=== PATIENT | female | born 1985 | race Native Hawaiian/Other Pacific Islander ===

== ENCOUNTER 2018-01-12 08:17 | Inpatient (IN) | payer OTHER ==
[2018-01-12] MEDS ORDERED: POLYCILLIN/NS 2 GM/100 ML 2 GM/100 ML BAG IV NR (11:00)
[2018-01-12] MEDS ORDERED: BRETHINE IVP PRN (11:00)
[2018-01-12] MEDS ORDERED: ePHEDrine SULFATE IV PRN (11:00)
[2018-01-12] MEDS ORDERED: LACTATED RINGERS 1,000 ML IV SCH (11:00)
[2018-01-12] MEDS ORDERED: XYLOCAINE 2% INFILTRATI NR (11:00)
[2018-01-12] MEDS ORDERED: PITOCin/NS 20 UNIT/1000ML DRIP 20 UNITS/1,000 ML BAG IV SCH (11:00)
[2018-01-12] MEDS ORDERED: PITOCin/NS 30 UNIT/500ML 30 UNITS/500 ML BAG IV SCH (11:00)
[2018-01-12] MEDS ORDERED: MINERAL OIL PO PRN (11:00)
[2018-01-12] MEDS ORDERED: BRETHINE SUB-Q PRN (11:00)
[2018-01-12 11:12] LABS: Hematocrit 36.2 % (30.3-42.9); Hemoglobin 11.6 gm/dl (10.1-14.3); Mean Corpuscular HGB Conc 32 % (30-34); Mean Corpuscular Hemoglobin 28 pg (28-32); Mean Corpuscular Volume 86 fl (79-97); Platelet Count 324 K/mm3 (140-440); Red Cell Distribution Width 15.7 % (13.2-15.2)
[2018-01-12] MEDS ORDERED: STADOL IV PRN (11:53)
--- NOTE | 2018-01-12 14:19 | History and Physical Report ---
History of Present Illness Date of examination: 01/12/18 Date of admission: 01/12/18 08:18 Chief complaint: Contractions History of present illness: 32 yo Fe ROSA 01/15/2018 (Ultrasound) presents with contractions. Pt initiated early care with [facility]. Positive Chlamydia and Trichomoniasis 09/30/2017 with Negative CASA 11/22/17. Taking FeS04 for anemia. O positive, Rubella Immune, GBS positive. 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 denies: abnormal PAP smear, gonorrhea, hepatitis B, hepatitis C, herpes, HIV, syphilis Family/Genetic History: none Social history: single, lives with family, full code. denies: smoking, alcohol abuse, prescription drug abuse, IV drug use - Obstetrical History Expected Date of Delivery: 01/15/18 Actual Gestation: 39 Week(s) 4 Day(s) : 3 Para: 2 Hx # Term Pregnancies: 2 Number of Pregnancies: 0 Spontaneous Abortions: 0 Induced : 0 Number of Living Children: 2 #1 Gender: Female year: 2[birth year] Birthweight: 3.629 kg Method of Delivery: Vaginal Gestational age at delivery: 40 Complications: none #2 Gender: Female year: 2[birth year] Birthweight: 3.005 kg Method of Delivery: Vaginal Gestational age at delivery: 39 Complications: none Medications and Allergies Allergies Allergy/AdvReac Type Severity Reaction Status Date / Time No Known Allergies Allergy Verified 01/12/18 11:01 Active Meds: Active Medications Butorphanol Tartrate (Stadol) 2 mg IV Q2H PRN PRN Reason: Labor Pain Last Admin: 01/12/18 12:14 Dose: 2 mg Ephedrine Sulfate (Ephedrine Sulfate) 10 mg IV Q2M PRN PRN Reason: Hypotension Lactated Ringer's (Lactated Ringers) 1,000 mls @ 125 mls/hr IV DIRECT RAMBO Last Admin: 01/12/18 12:39 Dose: 125 mls/hr Oxytocin/Sodium Chloride (Pitocin/Ns 20 Unit/1000ml Drip) 20 units in 1,000 mls @ 125 mls/hr IV DIRECT RAMBO Oxytocin/Sodium Chloride (Pitocin/Ns 30 Unit/500ml) 30 units in 500 mls @ 1 mls /hr IV TITR RAMBO; Protocol Lidocaine (Xylocaine 2%) 20 ml INFILTRATI ONCE NR Stop: 01/13/18 10:59 Mineral Oil (Mineral Oil) 30 ml PO QHS PRN PRN Reason: Constipation Terbutaline Sulfate (Brethine) 0.25 mg SUB-Q ONCE PRN PRN Reason: Hyperstimulation/Hypertonicity Terbutaline Sulfate (Brethine) 0.25 mg IVP ONCE PRN PRN Reason: Hyperstimulation/Hypertonicity Review of Systems All systems: negative Cardiovascular: no chest pain, no shortness of breath Respiratory: no shortness of breath Breasts: normal Gastrointestinal: no nausea, no vomiting, no diarrhea, no constipation Genitourinary: normal appearance, contractions, no vaginal bleeding, no vaginal discharge, no leakage of fluid, no genital sores Integumentary: no rash, no sores, no lesions - Vital Signs Vital signs: Vital Signs Pulse BP 69 113/63 01/12/18 08:42 01/12/18 08:42 Temp Pulse Resp BP Pulse Ox 98.2 F 83 18 123/74 78 L 01/12/18 11:31 01/12/18 13:46 01/12/18 12:44 01/12/18 11:34 01/12/18 13:46 - Physical Exam Breasts: Positive: normal Cardiovascular: Regular rate, Normal S1, Normal S2 Lungs: Positive: Clear to auscultation, Normal air movement Abdomen: Positive: normal appearance, normal bowel sounds, other (Gravid; S=D) Genitourinary (Female): Positive: normal external genitalia, normal perenium Vulva: both: normal Vagina: Positive: normal moisture Uterus: Positive: enlarged Anus/Rectum: Positive: normal perianal skin Extremities: Positive: normal Deep Tendon Reflex Grade: Normal +2 - Obstetrical FHR: auscultation normal, category 1 Uterine Contraction Monitor Mode: External Cervical Dilatation: 4 (per admitting RN) Cervical Effacement Percentage: 80 station: -2 Uterine Contraction Pattern: Regular Uterine Tone Measurement Phase: Resting Uterine Contraction Intensity: Moderate Results Result Diagrams: 01/12/18 10:30 Abnormal lab results 04/12/18 Range/Units 10:30 RDW 15.7 H (13.2-15.2) % All other labs normal. Assessment and Plan A: , TIUP at 39w4d Active labor GBS positive P: Routine labor admit May have IV pain med/epidural PRN Anticipate
[2018-01-12] MEDS ORDERED: BENADRYL PO PRN (14:29)
[2018-01-12] MEDS ORDERED: DULCOLAX PR PRN (14:29)
[2018-01-12] MEDS ORDERED: TUCKS PAD TP PRN (14:29)
[2018-01-12] MEDS ORDERED: PHENERGAN PO PRN (14:29)
[2018-01-12] MEDS ORDERED: ZOFRAN IV PRN (14:29)
[2018-01-12] MEDS ORDERED: MILK OF MAGNESIA PO PRN (14:29)
[2018-01-12] MEDS ORDERED: NORCO 5/325 PO PRN (14:29)
[2018-01-12] MEDS ORDERED: LANSINOH TP PRN (14:29)
[2018-01-12] MEDS ORDERED: TYLENOL PO PRN (14:29)
--- NOTE | 2018-01-12 14:43 | Procedure Note ---
OB Delivery Note - Delivery Date of Delivery: 01/12/18 (13:58) Surgeon: PATRICE RUCKER (OMAYRA) Estimated blood loss: 100cc - Vaginal Delivery presentation: vertex Delivery position: OA Intrapartum events: extend. bradycardia, mult.variable deceleratio Delivery induction: none Delivery augmentation: rupture of membranes Delivery monitor: external FHT, external uterine Route of delivery: Delivery placenta: spontaneous (14:00) Delivery cord: nuchal cord (x1, Loose) Episiotomy: none Delivery laceration: none Anesthesia: intravenous Delivery comments: AROM 13:34 with onset of pushing efforts. viable female over intact perineum, COLIN position, Loose nuchal x1, delivered intact via somersault maneuver at 13:58 with NICU/RT present d/t repeatative variable decels and bradycardia. to mothers abdomen, skin to skin, delayed cord clamping, cut by FOB. Cord blood obtained per hospital protocol. Spontaneous harris delivery of intact placenta at 14:00. 3 VC. FF@U-2. No tears or lacerations. No repairs. EBL 100ML. GBS positive, treated x1. Infant and mother left in stable condition in L&D. - Infant A at 1 minute: 8 at 5 minutes: 9 Infant Gender: Female (3156 grams, 6lbs 15oz, 19")
[2018-01-12] MEDS ORDERED: SODIUM CHLORIDE FLUSH SYRINGE 10 ML IV NR (15:00)
[2018-01-12] MEDS ORDERED: MOTRIN PO SCH (18:00)
[2018-01-13] MEDS: MOTRIN PO SCH ×4 (00:12→18:36)
[2018-01-13 05:49] LABS: Hematocrit 30.2 % (30.3-42.9); Hemoglobin 10.1 gm/dl (10.1-14.3)
--- NOTE | 2018-01-13 10:11 | Progress Note ---
Assessment and Plan A: PPD#1 s/p Stable P: Routine PP care Discharge home in am Subjective - Subjective Date of service: 01/13/18 Interval history: 32 yo Fe ROSA 01/15/2018 (Ultrasound) presents with contractions with 01/12/18. GBS positive, tx'd x1 Patient reports: appetite normal, voiding normally, pain well controlled, flatus , ambulating normally : doing well Objective - Vital Signs Latest vital signs: Vital Signs Temp Pulse Resp BP BP Pulse Ox 01/13/18 09:11 97.7 F 80 20 87/46 01/13/18 06:22 18 01/13/18 00:12 18 01/13/18 00:00 98.4 F 54 L 18 116/56 01/12/18 20:25 98.2 F 61 18 106/63 01/12/18 16:15 98.2 F 54 L 12 109/54 98 01/12/18 15:37 59 L 108/58 01/12/18 15:29 63 96 01/12/18 15:24 66 96 01/12/18 15:22 75 106/55 01/12/18 15:19 60 96 01/12/18 15:14 64 97 01/12/18 15:09 60 97 01/12/18 15:07 80 106/64 01/12/18 15:04 68 96 01/12/18 14:59 63 96 01/12/18 14:54 62 97 01/12/18 14:52 58 L 101/54 01/12/18 14:49 58 L 97 01/12/18 14:44 67 96 01/12/18 14:39 69 97 01/12/18 14:37 64 109/53 01/12/18 14:34 65 97 01/12/18 14:29 64 97 01/12/18 14:24 65 99 01/12/18 14:22 71 108/55 01/12/18 14:19 66 97 01/12/18 13:46 83 78 L 01/12/18 13:45 82 92 01/12/18 13:41 74 97 01/12/18 13:37 76 94 01/12/18 13:36 86 99 01/12/18 13:31 73 98 01/12/18 13:26 76 98 01/12/18 13:21 68 98 04/12/18 13:16 69 98 01/12/18 13:11 86 98 01/12/18 13:06 84 98 01/12/18 13:01 89 98 01/12/18 12:56 82 98 01/12/18 12:51 92 H 97 01/12/18 12:47 72 94 01/12/18 12:46 75 98 01/12/18 12:44 18 01/12/18 12:41 82 98 01/12/18 12:36 72 96 01/12/18 12:31 67 98 01/12/18 12:26 59 L 91 01/12/18 12:21 64 98 01/12/18 12:19 65 94 01/12/18 12:16 66 96 01/12/18 12:14 65 16 91 01/12/18 12:11 66 99 01/12/18 12:06 94 H 99 01/12/18 12:01 70 99 01/12/18 11:56 57 L 98 01/12/18 11:51 58 L 97 01/12/18 11:43 71 99 01/12/18 11:38 57 L 98 01/12/18 11:37 38 L 88 01/12/18 11:34 66 123/74 01/12/18 11:31 98.2 F 66 18 123/74 97 Intake and Output 01/12/18 01/13/18 01/13/18 23:59 07:59 15:59 Intake Total 240 120 120 Output Total 300 400 Balance -60 -280 120 Intake: Oral 240 120 120 Output: Urine 300 400 Void 300 400 Other: Total, Intake Amount 240 120 120 Total, Output Amount 300 400 # Voids Void 1 1 - Exam Breasts: Present: normal Cardiovascular: Present: Regular rate, Normal S1, Normal S2 Lungs: Present: Clear to auscultation, Normal air movement Abdomen: Present: normal appearance, soft Vulva: both: normal Uterus: Present: firm, fundal height below umbilicus (-1) Extremities: Present: normal Deep Tendon Reflex Grade: Normal +2 - Labs Labs: Abnormal lab results 01/12/18 01/13/18 Range/Units 10:30 05:23 Hct 30.2 L D (30.3-42.9) % RDW 15.7 H (13.2-15.2) %
--- NOTE | 2018-01-13 10:12 | Discharge Summary ---
Providers - Providers Date of Admission: 01/12/18 08:18 Date of discharge: 01/14/18 Attending physician: MIRTA GARCIA MD Primary care physician: MIRTA GARCIA MD Hospitalization Reason for admission: active labor, IUP at term Delivery: Procedure details: See H&P and delivery note Episiotomy: none Laceration: none complications: none Discharge diagnosis: IUP at term delivered baby: female Condition at discharge: Good Disposition: DC-01 TO HOME OR SELFCARE Plan - Provider Discharge Summary Activity: routine, no sex for 6 weeks, no heavy lifting 4 weeks, no strenuous exercise Diet: routine Instructions: routine Additional instructions: [] Smoking cessation referral if applicable(refer to patient education folder for contact #) [] Refer to [facility] Booklet Call your doctor immediately for: * Fever > 100.5 * Heavy vaginal bleeding ( >1 pad per hour) * Severe persistent headache * Shortness of breath * Reddened, hot, painful area to leg or breast * Drainage or odor from incision. * Keep incision clean and dry at all times and follow doctor's instructions regarding bathing/showering - Follow up plan Follow up: PATRICE RUCKER, OMAYRA [Advanced Practice Nurse] - 6 Weeks
[2018-01-14] MEDS: MOTRIN PO SCH ×3 (00:02→12:00)
[2018-01-14 14:48] VITALS: BP 118/68
== END 2018-01-14 18:20 | disposition home or self-care (01) | DRG 775 ==
LOC: TRG 08:17 → LD 08:18 → OB 16:18
PROVIDERS: ADMIT Obstetrics & Gynecology; ATTEND Obstetrics & Gynecology
PROC: 10E0XZZ Delivery of Products of Conception, External Approach (ICD-10-PCS; principal; 2018-01-12)
DX: O69.81X0 Labor and delivery complicated by cord around neck, without compression, not applicable or unspecified (principal); O76 Abnormality in fetal heart rate and rhythm complicating labor and delivery; O99.02 Anemia complicating childbirth; D64.9 Anemia, unspecified; O99.824 Streptococcus B carrier state complicating childbirth; Z37.0 Single live birth; Z3A.39 39 weeks gestation of pregnancy
CPT/HCPCS: 36415; 59025; 85014; 85018; 85027; 86592; 86850; 86900; 86901; 99211; G0463; J0290; J0595; J2590; J7120